=== PATIENT | female | born 1990 | race Caucasian/White ===

== ENCOUNTER → 2017-07-25 | Outpatient (CLI) | payer OTHER ==
[~2017-07-25] MED LIST: AMOXIL500 MG PO; CATAPRES GENER0.1 MG PO; FLINTSTONES1 CTB; LORTAB 5/500 501 TAB PO; NAPROSYN 500MG500 MG PO; NAPROSYN500 M1 PO; NOMEDS; NOMEDS XX; ORTHO TRI-CYCLE1 TA1 PO; SEASONIQUE1 TAB PO; SULFAMETHOXAZOL1 TA6 PO; TESSALON PERLE100 MG PO; ZITHROMAX 250M250 MG PO; ZITHROMAX Z PA250 MG PO; ZOFRAN ODT4 MG PO; Zofran4 MG PO
[2017-07-25 19:38] LABS: BILIRUBIN, INDIRECT 0.12 mg/dL (0-0.9)
== END ==
LOC: LAB 17:10
PROVIDERS: Nurse Practitioner Obstetrics & Gynecology
DX: N92.6 Irregular menstruation, unspecified (principal); E28.2 Polycystic ovarian syndrome; L68.0 Hirsutism